=== PATIENT | female | born 1955 | race Caucasian/White ===

== ENCOUNTER 2017-09-11 09:46 | Emergency (ER) | payer BC ==
[~2017-09-11] VITALS: Ht 160 cm; Wt 52.2 kg
[~2017-09-11 09:46] MED LIST: KEFLEX500 MG PO; MOTRIN800 MG PO; NKHM; ULTRAM50 MG PO
[2017-09-11 09:49] VITALS: BP 140/85
[2017-09-11] MEDS ORDERED: PREDNISONE20 M1 PO ×2 (10:11→10:42)
== END 2017-09-11 10:20 | disposition home or self-care (01) ==
LOC: ED 09:46
DX: T63.481A Toxic effect of venom of other arthropod, accidental (unintentional), initial encounter (principal); L50.8 Other urticaria; Z91.030 Bee allergy status; Y92.9 Unspecified place or not applicable